=== PATIENT | male | born 1985 | race Caucasian/White ===

== ENCOUNTER → 2021-08-28 | Outpatient (CLI) | payer BC ==
--- NOTE | 2021-08-29 03:13 | MR ---
EXAMINATION TYPE: MR shoulder RT wo con DATE OF EXAM: 08/28/2021 COMPARISON: None HISTORY: Right shoulder pain, decreased ROM. Multiplanar multiecho imaging of the right shoulder without contrast. The biceps tendon is intact. Subscapularis tendon is intact. The glenoid tamika appear normal. There is some hypertrophic mild spurring at the AC joint. There is some deformity and thickening and increased signal in the supraspinatus tendon at the attachment on the greater tuberosity and also in the subacromial joint space. There is full-thickness defect. There is no retraction. There is some in ferior deflexion of the supraspinatus tendon at the subacromial joint space. There is no evidence of a fracture. There is small cystic changes in the greater tuberosity of the hu merus. The scapula appears intact. IMPRESSION: Cystic changes in the greater tuberosity of the humerus and consistent with bone bruise and degenerat sari cyst formation. Full-thickness supraspinatus tendon tear without retraction. There is subacromial joint space narrowi ng. Deformity of the supraspinatus tendon with inferior deflection that could relate to some adhesion s and tear.
== END | disposition home or self-care (01) ==
LOC: RADMRIMAIN 19:56
PROVIDERS: ATTEND Orthopaedic Surgery
DX: M75.111 Incomplete rotator cuff tear or rupture of right shoulder, not specified as traumatic (principal); M85.611 Other cyst of bone, right shoulder; M21.821 Other specified acquired deformities of right upper arm

== ENCOUNTER 2021-10-18 05:44 | Day surgery (SDC) | payer BC ==
[2021-10-16 18:08] VITALS: BMI 37.3
--- NOTE | 2021-10-17 16:15 | HP ---
HISTORY AND PHYSICAL DATE OF SURGERY: 10/18/2021 Keyshawn Grande is a 35-year-old gentleman seen with progressive right shoulder pain. We discussed options for treatment. He elected to proceed with arthroscopy. Consent was obtained. PAST MEDICAL HISTORY: Noncontributory. PAST SURGICAL HISTORY: Knee arthroscopy, cholecystectomy. DAILY MEDICATIONS: None. ALLERGIES: NSAIDs. SOCIAL HISTORY: He denies tobacco use. PHYSICAL EVALUATION OF THE RIGHT SHOULDER: Flexion is 90 degrees. Abduction is 80 degrees. External rotation is 40 degrees with significant weakness. There is tenderness along the anterolateral acromion and rotator cuff insertion site. Impingement is positive 80 degrees. Drop-arm sign is positive. Cross-body adduction sign is positive. Distal neurovascular exam is intact. Radiographs of the right shoulder show type 3 acromion, moderate acromioclavicular joint osteoarthritis, and cystic changes of the greater tuberosity. MRI right shoulder revealed a rotator cuff tendon tear along with impingement. IMPRESSION: 1. Right shoulder impingement with rotator cuff tear. 2. Right shoulder acromioclavicular joint osteoarthritis. PLAN: Right shoulder arthroscopy with subacromial decompression, arthroscopic rotator cuff repair, Hortensia procedure and debridement. MMODL / IJN: [id number] /
[2021-10-18] MEDS ORDERED: MIDAZOLAM 2 MG/2 ML VIAL IV PRN (06:09)
[2021-10-18] MEDS ORDERED: LACTATED RINGERS 1,000 ML IV SCH (06:09)
[2021-10-18] MEDS ORDERED: DEXAMETHASONE SOD PHOSPHATE 4 MG/ML 1 ML VIAL IV ONE (06:09)
[2021-10-18] MEDS ORDERED: LIDOCAINE 1% (10MG/ML) FOR IV START INTRADERMA PRN (06:09)
[2021-10-18] MEDS ORDERED: ONDANSETRON 4 MG/2 ML VIAL IVP ONE (06:09)
[2021-10-18] MEDS ORDERED: fentaNYL (PF) 50 MCG/ML 2 ML AMP IVP ONE (06:50)
[2021-10-18] MEDS ORDERED: MIDAZOLAM 2 MG/2 ML VIAL IVP ONE (06:50)
[2021-10-18] MEDS ORDERED: HYDROmorphone 0.5 MG/0.5 ML SYRINGE IVP PRN (07:00)
[2021-10-18] MEDS ORDERED: PROPOFOL 10 MG/ML 20 ML VIAL IV ONE (07:24)
[2021-10-18] MEDS ORDERED: fentaNYL (PF) 50 MCG/ML 2 ML AMP ONE (07:24)
[2021-10-18] MEDS ORDERED: NEOSTIGMINE 1 MG/ML 10 ML VIAL ONE (07:24)
[2021-10-18] MEDS ORDERED: DEXAMETHASONE SOD PHOSPHATE 4 MG/ML 1 ML VIAL ONE (07:24)
[2021-10-18] MEDS ORDERED: SUCCINYLCHOLINE CHLORIDE VIAL 200 MG/10 ML VIAL IV ONE (07:24)
[2021-10-18] MEDS ORDERED: ROCURONIUM 10 MG/ML (5 ML VIAL) IV ONE (07:24)
[2021-10-18] MEDS ORDERED: GLYCOPYRROLATE 0.2 MG/ML 2 ML VIAL ONE (07:24)
[2021-10-18] MEDS ORDERED: ROPIVACAINE 5 MG/ML 30 ML VIAL ONE (07:24)
[2021-10-18] MEDS ORDERED: LIDOCAINE 1% INJ 10MG/ML (20 ML MDV) ONE (07:24)
[2021-10-18 09:00] VITALS: TEMP 97
--- NOTE | 2021-10-18 09:04 | P.OP ---
Date of Procedure: 10/18/21 Preoperative Diagnosis: Right shoulder impingement Postoperative Diagnosis: 1. Right shoulder rotator cuff tear 2. Right shoulder impingement Procedure(s) Performed: 1. Right shoulder arthroscopic rotator cuff repair 2. Right shoulder arthroscopic subacromial decompression Implants: 14.75 Arthrex swivel lock anchor Anesthesia: GETA, regional (Interscalene block) Surgeon: Az Benedict [employer] [place] Supervisor #1: Narciso Perez Estimated Blood Loss (ml): 11 Pathology: none sent Condition: stable Disposition: PACU Indications for Procedure: 35-year-old gentleman seen with progressive right shoulder pain. After treatment options were discussed, he elected to proceed with arthroscopy. Operative Findings: see description of procedure Description of Procedure: Patient underwent an interscalene block by department of anesthesia. The patient was then taken to the operative suite. The patient underwent a general anesthetic by the department of anesthesia. The patient was placed into a lateral position and secured. There was appropriate padding of the bony prominence. Right shoulder was then prepped and draped in normal sterile orthopedic fashion. We placed the extremity in 10 pounds of longitudinal traction. A posterior incision was now made for a posterior working portal site. The trocar and cannula were inserted into the glenohumeral joint. Arthroscopy was initiated. Spinal needle was now inserted anteriorly, to ascertain the anterior working portal site. An incision was now made in that area, a trocar was inserted followed by a probe. There was some mild fraying of the anterior labrum. The glenohumeral joint was unremarkable. The long head biceps tendon was unremarkable and stable appearing. I debrided out the superficial fraying of labrum. The labrum was probed and found to be stable. Instruments were now removed from glenohumeral joint. Utilizing the posterior working portal site, the trocar and cannula were inserted into the subacromial space. Arthroscopy initiated. I made an incision 2 fingerbreadths lateral to the acromion. I introduced my trocar followed by my ArthroCare ablator. I now began ablating thick subacromial bursal tissue, which exposed the undersurface of the anterior acromion. There was diminished subacromial space. There was a very prominent anterior acromion. A motorized bur was introduced and a subacromial decompression was performed. I also excised some osteophytes off the inferior aspect of the distal clavicle. The AC joint was visualized and noted to be mildly arthritic. I did not think enough toward a Hortensia procedure. I now began probing the distal supraspinatus. I noted a full-thickness perforation along the midportion of the supraspinatus. I now debrided the margins gained down to stable tendon tissue. The defect measured 11.5 cm and was freely mobile over the footprint. I abraded the footprint with a motorized bur. With the assistance of Jeffrey TORRES past 3 everted mattress sutures through good bites of rotator cuff tendon. I now punched on the footprint area for insertion of an anchor. All 6 limbs of suture were passed through the eyelet of a 4.75 Arthrex swivel lock anchor. I placed the eyelet into the pre-punched hole and held in position. Jeffrey TORRES now tensioned all 6 suture limbs and deployed anchor with good fixation noted. All residual suture limbs were now clipped. We had good compression of the tendon along the entire footprint. Instruments now removed from the portal sites. All portal sites were approximated with nylon suture. Sterile dressings were applied followed by a shoulder sling. Narciso TORRES assisted in this complex case. The patient was awakened, transferred to a bed, and taken to recovery in stable condition.
[2021-10-18 09:12] VITALS: RESP 16
--- NOTE | 2021-10-18 09:17 | P.ANPRN ---
Procedure Note - Anesthesia - Nerve Block Performed Right Interscalene Single Time Out Performed: Yes Date of Procedure: 10/18/21 Procedure Start Time: 06:49 Procedure Stop Time: 06:57 Location of Patient: PreOp Indication: Requested by Surgeon Specifically requested for management of pain by DrMarifer: Az Benedict Sedation Type: Sedate with meaningful contact maintained Preparation: Sterile Prep Position: Supine Needle Types: Pajunk Needle Gauge: 21 Ultrasound used to visualize needle placement: Yes Ultrasound used to observe medication spread: Yes Injectate: 0.5% Ropivacaine (see comment for volume) (25 ml +4 mg Dexamethasone) Blood Aspirated: No Pain Paresthesia on Injection Noted: No Resistance on Injection: Normal Image Stored and Saved: Yes Events: Uneventful and Well Tolerated
[2021-10-18 10:30] VITALS: BP 143/80; PULSE 79
== END 2021-10-18 10:31 | disposition home or self-care (01) ==
LOC: OR 05:44
PROVIDERS: ATTEND Orthopaedic Surgery
DX: M75.41 Impingement syndrome of right shoulder (principal); M75.121 Complete rotator cuff tear or rupture of right shoulder, not specified as traumatic; M19.011 Primary osteoarthritis, right shoulder; R03.0 Elevated blood-pressure reading, without diagnosis of hypertension; E78.00 Pure hypercholesterolemia, unspecified; J45.909 Unspecified asthma, uncomplicated; M48.02 Spinal stenosis, cervical region; K21.9 Gastro-esophageal reflux disease without esophagitis; Z79.899 Other long term (current) drug therapy; Z88.8 Allergy status to other drugs, medicaments and biological substances; Z90.49 Acquired absence of other specified parts of digestive tract; Z98.890 Other specified postprocedural states
CPT/HCPCS: 64415; 76942; 29826; 29827; C1713; J2250; J0330; J1100; J2710; J0690; J2405; J2001; J3010; J2795; J2704

== ENCOUNTER → 2022-12-21 | Outpatient (CLI) | payer BC ==
--- NOTE | 2022-12-22 08:43 | MR ---
EXAMINATION TYPE: MR shoulder RT wo con DATE OF EXAM: 12/21/2022 COMPARISON: Prior MRI right shoulder August 28, 2021 HISTORY: Rt shoulder pain for 7 months, Hx Rt shoulder surgery TECHNIQUE: Multiplanar, multisequence imaging of the right shoulder is performed without contrast. FINDINGS: Rotator Cuff: Some increased signal distal supraspinatus and infraspinatus tendons redemonstrated. Ar tifact from screws from rotator cuff surgery are now present. No significant new tearing is present. Rotator cuff muscle bulk is preserved. Acromioclavicular Joint: [id number] narrowing and capsular hypertrophy. Subchondral cystic tam ge distal clavicle. Glenohumeral Joint: Small sized joint effusion. No significant spurring. Labrum: The labrum appears grossly intact given limitation of non-arthrogram study. Biceps Tendon: The long head of biceps is in normal location within bicipital groove. Increased signa l and thickening of the intracapsular portion is redemonstrated. This suggests chronic tendinosis. Bone marrow signal: No focal abnormal marrow signal is appreciated. Other: No additional significant abnormality is appreciated. IMPRESSION: Interval rotator cuff surgery. Some tendinosis of the distal supraspinatus and infraspina tus tendons. No discrete significant new tear is seen. Degenerative changes as detailed above.
== END | disposition home or self-care (01) ==
LOC: RADMRIMAIN 18:00
PROVIDERS: ATTEND Orthopaedic Surgery
DX: M67.813 Other specified disorders of tendon, right shoulder (principal)